=== PATIENT | female | born 1965 ===

== ENCOUNTER 2025-04-27 21:33 | Outpatient (REF) | payer BC, SELFPAY ==
[2025-04-27 21:05] LABS: HCT 35.9 % (36.0-46.0); HGB 12.3 g/dL (11.2-15.7); MCH 31.1 pg (27.0-33.0); MCHC 34.3 % (32.0-36.0); MCV 91 fL (80-95); Platelet Count 349 10^3/uL (130-400); RBC 3.95 10^6/uL (3.93-5.22); RDW 11.9 % (11.7-14.6); RDW-SD 39.5 fL; WBC 8.62 10^3/uL (4.4-10.8)
[2025-04-27 21:30] LABS: ALT 30 U/L (14-59); AST 17 U/L (15-37); Alkaline Phosphatase 88 U/L (46-116); Anion Gap 9.3 mmol/L (3-11); BUN 19 mg/dL (7-18); Bilirubin, Total 0.6 mg/dL (0.2-1.0); CO2 25.7 mmol/L (21.0-32.0); CREATININE 0.7 mg/dL (0.55-1.02); Chloride 107 mmol/L (98-107); Estimated GFR 100.19 (mL/min/1.73m2); Glucose 107 mg/dL (74-106); Sodium 142 mmol/L (136-145); TSH (W/Ref FT4) 2.92 uIU/mL (0.36-3.74); Total Protein 6.8 g/dL (6.4-8.2)
[2025-04-27 21:58] LABS: Calculated LDL 80 mg/dL (<100); Cholesterol 177 mg/dL (<200); HDL Cholesterol 83 mg/dL (>or=50); Triglyceride 74 mg/dL (<150)
== END 2025-04-27 21:34 | disposition home or self-care (01) ==
LOC: NCHCN 21:33
PROVIDERS: Visit Provider Family Medicine
DX: K21.9 Gastro-esophageal reflux disease without esophagitis (principal); D64.9 Anemia, unspecified; Z13.220 Encounter for screening for lipoid disorders; Z13.29 Encounter for screening for other suspected endocrine disorder
CPT/HCPCS: 80053; 80061; 85027; 84443

== ENCOUNTER 2025-10-28 13:37 | Outpatient (REF) | payer BC, SELFPAY ==
[2025-10-31 08:48] LABS: Lyme Ab w Rflx to Lyme Confirm Negative (Negative)
[2025-10-31 15:03] LABS: B. miyamotoi PCR Negative (Negative); Babesia divergens/MO-1 Negative (Negative); Ehrlichia muris eauclairensis Negative (Negative)
== END 2025-10-28 13:38 | disposition home or self-care (01) ==
LOC: LBN 13:37
PROVIDERS: PCP Family Medicine; Referring Provider Family Medicine; Visit Provider Otolaryngology
DX: R42 Dizziness and giddiness (principal)
CPT/HCPCS: 87798; 86618